=== PATIENT | male | born 1945 | race Caucasian/White ===

== ENCOUNTER 2016-10-06 09:06 | Emergency (ER) | payer MEDICARE ==
[2016-10-06 09:36] LABS: BASOPHIL# 0.1 X 10^3uL (0.0-0.1); BASOPHILS 1.6 % (0.0-2.0); EOSINOPHILS 4.6 % (0.0-6.0); EOSINOPHILS# 0.2 X 10^3uL (0.0-0.4); HEMATOCRIT 43.6 % (42.0-54.0); LYMPHOCYTES 28.2 % (20.0-40.0); LYMPHOCYTES# 1.3 X 10^3uL (0.8-3.8); MEAN CELL VOLUME 90.4 fL (80.0-100.0); MEAN CORPUS. HGB CONCENTRATION 34.3 g/dL (32.0-36.0); MEAN PLATELET VOLUME 7.1 fL (7.4-10.4); MONOCYTES 12.1 % (2.0-10.0); MONOCYTES# 0.6 X 10^3uL (0.2-1.0); NEUTROPHILS 53.5 % (54.0-75.0); NEUTROPHILS# 2.4 X 10^3uL (2.6-6.7); PLATELET COUNT 177 X 10^3uL (130-440); RED BLOOD COUNT 4.82 X 10^6uL (4.20-6.10); RED CELL DISTRIBUTION WIDTH 12.3 % (11.5-14.5); WHITE BLOOD COUNT 4.6 X 10^3uL (3.9-10.7)
[2016-10-06 09:47] LABS: BLOOD UREA NITROGEN 12 mg/dL (9-20); CALCIUM 8.9 mg/dL (8.4-10.2); CHLORIDE 110 mmol/L (98-107); CREATININE 0.8 mg/dL (0.7-1.3); EST GLOMERULAR FILTRATION RATE > 60 mL/min; GLUCOSE 88 mg/dL (70-100); SODIUM 144 mmol/L (137-145)
--- NOTE | 2016-10-06 09:49 | CT REPORT ---
HISTORY: Fall. COMPARISON: None. TECHNIQUE: Axial non-contrast images obtained from skull vertex through foramen magnum. Dose reduction technique was utilized. FINDINGS: There is no atrophy. There is no hemorrhage. There is no hydrocephalus. No mass lesion is identifi ed. Martinez white differentiation adequate, there is no infarction. No midline shift is identified. There is right-sided periorbital and post septal medial orbital emphysema. There is a minimally displ aced medial right orbital fracture which is seen best on axial image 4 of series 3, consider characte rization with CT of the facial bones. IMPRESSION: No acute intracranial abnormality. Medial right orbital fracture, consider characterization with CT of the facial bones. Final Electronic Signature: This report was electronically signed by Gianni Gtuhrie MD, FACR on 017 9:47 AM. skip /
--- NOTE | 2016-10-06 09:52 | CT REPORT ---
HISTORY: Fall. COMPARISON: None. TECHNIQUE: This examination was performed using automated exposure control, adjustment of mA or kV according to patient size, and/or use of iterative reconstruction technique. Axial thin section images obtained f rom skull base through head of the clavicles. Sagittal and coronal reformat images obtained. FINDINGS: There is no fracture. There is no prevertebral soft tissue swelling. Alignment is normal. There is no lytic or sclerotic lesion. Mineralization is normal. There is no gross soft tissue abnormality. Facet arthropathy and degenerative disc disease are noted at all cervical levels. IMPRESSION: Degenerative changes, no acute traumatic finding. Final Electronic Signature: This report was electronically signed by Gianni Guthrie MD, FACR on 017 9:50 AM. skip /
[2016-10-06 10:01] LABS: ALBUMIN 4.1 g/dL (3.5-5.0); ALKALINE PHOSPHATASE 60 U/L (38-126); ALT 44 U/L (21-72); AST 74 U/L (17-59); BILIRUBIN, DIRECT 0.1 mg/dL (0.0-0.4); BILIRUBIN, TOTAL 0.9 mg/dL (0.2-1.3); ETHYL ALCOHOL 91 mg/dL (<10); LIPASE 190 U/L (23-300); MAGNESIUM 1.9 mg/dL (1.6-2.3); TOTAL PROTEIN 7.3 g/dL (6.3-8.2)
[2016-10-06] MEDS ORDERED: MAGNESIUM SULFATE 1 GM/2 ML VIAL ONE (10:06)
[2016-10-06] MEDS ORDERED: MULTIVITAMINS 10 ML VIAL IV ONE (10:06)
[2016-10-06] MEDS ORDERED: THIAMINE HCL 200 MG/2 ML VIAL ONE (10:06)
--- NOTE | 2016-10-06 12:20 | MRI REPORT ---
HISTORY: History of fall, right eye pain and bruising. COMPARISON: CT head and CT cervical spine same date. TECHNIQUE: Multiplanar multi sequential imaging of the brain obtained with and without IV gadolinium. 15cc Magnevist contrast. FINDINGS: There are prominent bilateral subdural spaces noted, particularly near the skull vertex, right slight ly greater than left, suggesting subdural hygroma, there is no evidence of subdural hemorrhage. There is age-appropriate atrophy. There are scattered areas of increased T2 and FLAIR signal in the p ontine, periventricular, and subcortical white matter of the cerebral hemispheres bilaterally, consis tent with chronic small vessel ischemic change. There are prominent perivascular spaces noted in the lenticular nuclei bilaterally, within normal limits. There is pansinus mucosal thickening. There is trace fluid noted in the right ethmoid sinuses consistent with known history of medial orbit al fracture. There is some right-sided periorbital subcutaneous edema. There is no retrobulbar hemato ma or intraconal lesion. There is no evidence of acute infarction. There is no acute hemorrhage or hydrocephalus, there is no mass effect or midline shift, intracranial arterial flow voids are patent, there is no abnormal enhan cing brain parenchymal or extra-axial lesion identified. IMPRESSION: Prominent subdural spaces are noted bilaterally suggesting CSF hygroma, this suggests a history of re mote subdural hemorrhage, there is no acute hematoma identified. Age-appropriate atrophy and chronic small vessel ischemic change. Chronic sinus disease. There is trace fluid noted in the right medial ethmoid air cells consistent with known right-sided me dial orbital fracture seen on prior CT. There is no acute intracranial abnormality identified. Final Electronic Signature: This report was electronically signed by Gianni Guthrie MD, FACR on 017 12:18 PM. skip /
--- NOTE | 2016-10-06 13:23 | ER NURSING DOCUMENTATION ---
Nurse's Notes [facility] Name:Danie Templeton Age:70 yrs Sex:Male :1945 Arrival Date:10/06/2016 Time:09:06 Bed4 Private MD:Brandi Roy Diagnosis:Orbital Fracture-: Acute Right Medial Wall without Muscle Entrapement;Fall;Dehydration Presentation: 10/06 09:14 Acuity: MARILIA 2 tg 09:21 Notified ED Physician of patient's arrival and CC Dr. Gonzalez notified. tg 09:29 Presenting complaint: Patient states: Fell , but does not remember the fall. tg Noticed a black eye Thursday morning. reports episodes of slurred speech and confusion over the past few weeks that all resolve on their own. Pt has headache, neck ache, and sore shoulders. Transition of care: patient was not received from another setting of care. Time Last Known Well for patient was N/A. No acute neurological deficit is noted. Pre-hospital glucose is not applicable to this patient. 09:29 Method Of Arrival: Private Vehicle tg Triage Assessment: 09:36 The onset of the patients symptoms was more than six hours ago. General: Appears in no tg apparent distress, Behavior is cooperative, pleasant. Pain: Complains of pain in behind eyes, neck, shoulders. Neuro: Reports headache a syncopal episode. Neuro: Level of Consciousness is awake, alert, Oriented to person, place, time, event, Gait is steady, Speech is normal, Facial symmetry appears normal. Cardiovascular: Capillary refill < 3 seconds. Respiratory: Respiratory effort is even, unlabored. Derm: Skin is pink, warm & dry. Musculoskeletal:. Historical: - Allergies: ETHER; PENICILLINS; - Home Meds: 1. Nexium Oral 2. coenzyme Q10 oral 3. Aspirin Oral 4. Metoprolol Tartrate Oral 5. proair 6. Fish Oil oral - PMHx: epistaxis; atrial flutter; ASTHMA; superficial thrombophlebitis of leg; - PSHx: TONSILLECTOMY; umbilical hernia repair; - Tetanus: < 10 years. - Ebola Screening: : Patient negative for fever greater than or equal to 101.5 degrees Fahrenheit, and additional compatible Ebola Virus Disease symptoms. Patient denies exposure to infectious person. Patient denies travel to an Ebola-affected area in the 21 days before illness onset. No symptoms or risks identified at this time. . - Immunization history: Flu Vaccine < 1 year. - Social history: Smoking status: Patient states former smoker of tobacco. Screenin:39 Infectious Disease Risk Unable to Obtain. Abuse screen: Denies threats or abuse. Denies tg injuries from another. Nutritional screening: No deficits noted. Vital Signs: 09:09 BP 146 / 85; Pulse 61; Resp 14; Temp 98.4(O); Pulse Ox 92% on R/A; tg 10:03 BP 139 / 81 (auto/); tg 10:09 Pulse Ox 94% ; tg 10:30 BP 124 / 85 (auto/); tg 10:34 Pulse Ox 93% ; tg 12:31 BP 134 / 119 (auto/); tg 12:31 Pulse 72; Resp 14; Pulse Ox 91% on R/A; tg Pratibha Coma Score: 09:35 Eye Response: spontaneous(4). Verbal Response: oriented(5). Motor Response: obeys cd commands(6). Total: 15. ED Course: 09:07 Patient arrived in ED. akbar 09:08 Brandi Roy MD is Private Physician. akbar 09:14 Rayray Aparicio, RN is Primary Nurse. tg 09:14 Triage completed. tg 09:38 CAT SCAN; HEAD W/O CON [id number] In Process Unspecified. EDMS 09:39 Arm band placed on Bed in low position Call Light in Reach Gowned HOB Elevated Side tg rails up x1. Family accompanied patient. 09:39 Valuables Remains with patient. Pulse ox on. tg 09:40 Inserted peripheral IV: 20 gauge in left forearm. tg 09:43 CAT SCAN; CERVICAL [id number] In Process Unspecified. EDMS 09:48 Wilber Gonzalez MD is Attending Physician. cd 10:04 EKG done. (by ED staff). Reviewed by Rayray Aparicio RN. tg 11:20 Patient moved to MRI. ms 11:27 CAT SCAN; HEAD W/O CON [id number] In Process Unspecified. EDMS 11:30 BRAIN W/WO CONTRAST [id number] In Process Unspecified. EDMS 11:30 CAT SCAN; HEAD W/O CON [id number] Sent. tg 12:29 Patient moved back from MRI. ms 12:44 Brandi Roy MD is Referral Physician. cd 13:21 EKG attached lp Administered Medications: 10:08 Drug: Banana Bag - (NS 0.9% 1000 ml, folic acid 600 mcg, Thiamine 100 mg, Multivitamin tg 10 ml, Magnesium Sulfate 1 grams); Route: IV; Rate: calculated rate; Site: left forearm; 11:30 Follow up: IV Status: Completed infusion; IV Intake: 1000ml tg Intake: 11:30 IV: 1000ml; Total: 1000ml. tg Outcome: 12:46 Discharge ordered by . cd 13:18 Discharged to home ambulatory, with family. tg 13:18 Condition: unchanged 13:18 Discharge Assessment: Patient awake, alert and oriented x 3. No cognitive and/or functional deficits noted. Patient verbalized understanding of disposition instructions. 13:18 Instructed on discharge instructions, follow up and referral plans. medication usage, Prescriptions given X 1. 13:18 IV D/Jesse 13:22 Patient left the ED. tg 10/07 15:35 Discharge F/U Call: Spoke with: patient. Have you filled your prescriptions? yes. Did ke your discharge instructions answer all of your questions? yes Have you made a f/u appointment? yes What is the one thing you feel we could do to improve? Patient's answer: Feeling better overall. No questions Signatures: Dispatcher [employer] EDRayray Claros, RN JEFFREY Cherelle Cisneros RN RN Wilber Quesada MD MD cd Davies, Jackie, Nicolette Menendez jd ms Jeremiah, Rossi Salinas, RN JEFFREY ramos
--- NOTE | 2016-10-06 13:23 | ER PHYSICIAN DOCUMENTATION ---
Physician Documentation [facility] Name:Danie Templeton Age:70 yrs Sex:Male :1945 Arrival Date:10/06/2016 Time:09:06 Bed4 Private MD:Brandi Roy ED, Chris Disposition: 10/06 13:00 Chart complete. cd Disposition: 10/06/16 12:46 Discharged to Home/Self Care. Impression: Orbital Fracture - : Acute Right Medial Wall without Muscle Entrapement, Fall, Dehydration. - Condition is Good. - Discharge Instructions: DEHYDRATION (4y-Adult), FACIAL FRACTURE. - Prescriptions for Zithromax Z- Andrey 250 mg Oral Tablet - take 1 tablet by ORAL route as directed for 5 days Day 1 - take two (2) tablets one time. Day 2, 3, 4 , 5 take one (1) tablet once daily.; 6 tablet. - Medical Reconciliation form form. - Follow up: Brandi Roy MD; When: 7 - 10 days; Reason: Recheck today's complaints, Continuance of care. - Problem is new. - Symptoms have improved. - Notes: You have an Orbital Fracture. Do not blow your nose for 10 days, Take Zithromax 5 day Z-Pack to prevent Sinusitis... Ice pack as needed. Tylenol for pain. Follow up withENT Surgeon, Dr. Manuel Pandey, in [place] in 5 - 7 days. You must stop drinking alcohol today. Drink plenty of fluids...2 - 3 quarts of water every day. Please strongly consider joining AA and going every day. Follow up with Dr. Roy in 7 - 10 days. HPI: 09:15 This 70 yrs old Male presents to ER via Private Vehicle with complaints of cd Slurred Speech, Fall Injury. 09:15 The patient presents to the emergency department with a speech or higher order brain cd function problem, aphasia, that is moderate, on and off for the past two weeks. Patient's reports he would have difficulty word finding, concentrating, pronouncing words. He currently has no Neurologic symptoms. Patient fell and struck his right face resulting in a right periorbital ecchymosis this past , 4 days ago. He has amnesia for the event. He does not know if he he had LOC. In talking with the patient, he reports he usually has a martini, then 3 - 4 glasses of wine. I told him he is drinking too much and this probably contributed to his fall. I explained we would also have to work him up for a possible TIA.. Onset: The symptom(s)/episode began/occurred suddenly, 4 day(s) ago. Context: occurred at home. Associated signs and symptoms: Pertinent positives: headache, Pertinent negatives: altered mental status, dizziness, nausea, paresthesias, blurred vision, double vision, loss of vision. Severity of symptoms: At their worst the symptoms were moderate in the emergency department the symptoms are unchanged. Risk factors for stroke or transient ischemic attack: atrial fibrillation, hypertension, heavy alcohol use. The patient has not experienced similar symptoms in the past. Historical: - Allergies: ETHER; PENICILLINS; - Home Meds: 1. Nexium Oral 2. coenzyme Q10 oral 3. Aspirin Oral 4. Metoprolol Tartrate Oral 5. proair 6. Fish Oil oral - PMHx: epistaxis; atrial flutter; ASTHMA; superficial thrombophlebitis of leg; - PSHx: TONSILLECTOMY; umbilical hernia repair; - Tetanus: < 10 years. - Ebola Screening: : Patient negative for fever greater than or equal to 101.5 degrees Fahrenheit, and additional compatible Ebola Virus Disease symptoms. Patient denies exposure to infectious person. Patient denies travel to an Ebola-affected area in the 21 days before illness onset. No symptoms or risks identified at this time. . - Immunization history: Flu Vaccine < 1 year. - Social history: Smoking status: Patient states former smoker of tobacco. ROS: 09:35 ENT: Negative for injury, pain, epistaxis and discharge. cd 09:35 Cardiovascular: Negative for chest pain, palpitations, edema and pleuritic pain. cd Respiratory: Negative for shortness of breath, dyspnea on exertion, cough, sputum production, wheezing, hemoptysis and pleuritic chest pain. Abdomen/GI: Negative for abdominal pain, nausea, vomiting, diarrhea, constipation, distension, melena, hematochezia and hematemesis. Back: Negative for injury, pain or muscle spasms. : Negative for injury, bleeding, discharge, swelling, dysuria, frequency or urgency. MS/Extremity: Negative for injury, deformity, edema, calf tenderness, pain or coldness. 09:35 Skin: Negative for injury, rash, itching and discoloration. 09:35 Constitutional: Positive for poor PO intake, Negative for chills, fever. 09:35 Eyes: Positive for Right Periorbital ecchymosis, Negative for blurry vision, redness, visual disturbance, vision loss, or Diploplia. 09:35 Neck: Positive for pain at rest, bony tenderness. 09:35 Neuro: Positive for headache, loss of consciousness, speech changes, Negative for altered mental status, dizziness, gait disturbance, syncope, visual changes. 09:35 All other systems are negative. Exam: 09:35 ENT: Nares patent. No nasal discharge, no septal abnormalities noted. Tympanic cd membranes are normal and external auditory canals are clear. Oropharynx with no redness, swelling, or masses, exudates, or evidence of obstruction, uvula midline. Mucous membranes moist. Chest/axilla: Normal chest wall appearance and motion. Nontender with no deformity. No lesions are appreciated. Respiratory: Lungs have equal breath sounds bilaterally, clear to auscultation and percussion. No rales, rhonchi or wheezes noted. No increased work of breathing, no retractions or nasal flaring. Abdomen/GI: Soft, non-tender, with normal bowel sounds. No distension or tympany. No guarding or rebound. No evidence of tenderness throughout. Back: No spinal tenderness. No costovertebral tenderness. Full range of motion. Skin: Warm, dry with normal turgor. Normal color with no rashes, no lesions, and no evidence of cellulitis. MS/ Extremity: Pulses equal, no cyanosis. Neurovascular intact. Full, normal range of motion. Neuro: Awake and alert, GCS 15, oriented to person, place, time, and situation. Cranial nerves II-XII grossly intact. Motor strength 5/5 in all extremities. Sensory grossly intact. Cerebellar exam normal. Normal gait. 09:35 Psych: Awake, alert, with orientation to person, place and time. Behavior, mood, and affect are within normal limits. 09:35 Constitutional: The patient appears alert, awake, non-diaphoretic, non-toxic, well developed, well nourished, anxious. 09:35 Head/face: Noted is ecchymosis, that is moderate, of the right eye, Basilar skull fracture findings: raccoons' eyes, on the right. 09:35 Eyes: Periorbital structures: ecchymosis, that is moderate, on the right supraorbital ridge, right upper eyelid, medial canthus of right eye, lateral canthus of right eye and right lower eyelid, Pupils: equal, round, and reactive to light and accomodation, Extraocular movements: intact throughout, Conjunctiva: normal, no acute changes, Corneas: are normal, Anterior chamber: normal. 09:35 Neck: C-spine: vertebral tenderness, that is mild, diffusely, ROM/movement: no acute changes. 09:35 Cardiovascular: Rate: normal, Rhythm: regular, Pulses: no pulse deficits are appreciated, Heart sounds: normal. 09:35 Neuro: Motor: is normal, Sensation: is normal. cd Vital Signs: 09:09 BP 146 / 85; Pulse 61; Resp 14; Temp 98.4(O); Pulse Ox 92% on R/A; tg 10:03 BP 139 / 81 (auto/); tg 10:09 Pulse Ox 94% ; tg 10:30 BP 124 / 85 (auto/); tg 10:34 Pulse Ox 93% ; tg 12:31 BP 134 / 119 (auto/); tg 12:31 Pulse 72; Resp 14; Pulse Ox 91% on R/A; tg Victoria Coma Score: 09:35 Eye Response: spontaneous(4). Verbal Response: oriented(5). Motor Response: obeys cd commands(6). Total: 15. MDM: 09:15 Data interpreted: Pulse oximetry: on room air is 91 %. Interpretation: normal. cd 09:48 Patient medically screened. cd 10:00 ECG:. cd 11:30 Data reviewed: vital signs, nurses notes, old medical records, lab test result(s), EKG, cd radiologic studies, CT scan, MRI, and as a result, I will discharge patient, initiate a consult, with a plastic surgeon, from and Internal Medicine. 12:00 Neurological re-evaluation: normal neurological exam including cranial nerves, cd orientation, mentation, motor and sensory exam, cerebellar testing, GCS normal, and normal gait. Thrombolytics: No thrombolytic given not indicated. Patient did not receive fibrinolytic due to not indicated. 12:20 Counseling: I had a detailed discussion with the patient and/or guardian regarding: the cd historical points, exam findings, and any diagnostic results supporting the discharge/admit diagnosis, lab results, radiology results, the need for outpatient follow up, for a recheck, for a referral to a specialist, a plastic surgeon, as well as her PCP in 7 days. He will have an Echocardiogram and Bilateral Carotid US exam this week, to return to the emergency department if symptoms worsen or persist or if there are any questions or concerns that arise at home. Physician consultation: Manuel Pandey MD was called at 12:15, was contacted at 12:20, regarding consult, patient's condition, need to evaluate the patient as soon as possible, outpatient follow-up, and will see patient in office, in 2-3 days. 13:21 EKG attached lp 10/06 09:41 Order name: CBC AUTO DIF, MDIF/RMOR IF IND; Complete Time: 12:44 EDMS 10/06 09:51 Interpretation: Normal. 10/06 09:51 Order name: BASIC METABOLIC PANEL; Complete Time: 12:44 EDMS 10/06 09:54 Interpretation: Normal Except: CARBON DIOXIDE 20; Dehydration. 10/06 10:10 Order name: MAGNESIUM; Complete Time: 12:44 EDMS 10/06 10:17 Interpretation: Normal. 10/06 10:10 Order name: HEPATIC PANEL; Complete Time: 12:44 EDMS 10/06 10:17 Interpretation: Normal Except: AST 74. 10/06 10:10 Order name: LIPASE; Complete Time: 12:44 EDMS 10/06 10:17 Interpretation: Normal. 10/06 10:10 Order name: ETHYL ALCOHOL; Complete Time: 12:44 EDMS 10/06 10:18 Interpretation: Abnormal: ETHYL ALCOHOL 91. 10/06 10:45 Order name: PROTIME/INR; Complete Time: 12:44 EDMS 10/06 12:43 Interpretation: Normal. 10/06 09:38 Order name: CAT SCAN; HEAD W/O CON [id number] EDMS 10/06 09:53 Interpretation: Normal Except: No ICH...Acute Right sided Medial Orbital Fracture. No cd apparent muscle entrapement. 10/06 09:43 Order name: CAT SCAN; CERVICAL W/[id number]; Complete Time: 09:54 EDMS 10/06 09:53 Interpretation: Normal Except: DDD but no fractures. cd 10/06 11:30 Order name: BRAIN W/WO CONTRAST [id number]; Complete Time: 09:08 EDMS 10/08 09:08 Interpretation: Normal Except: Chronic changes and Right Medial Orbital Fracture cd without muscle entrapement. See Red report. 10/06 12:21 Order name: BRAIN W/WO CONTRAST [id number]; Complete Time: 12:44 EDMS 10/06 12:43 Interpretation: See Report below. Reviewed by me and discussed with patient and . cd 10/06 09:15 Order name: 12-lead EKG; Complete Time: 10:16 tg 10/06 09:15 Order name: Pulse Ox Continuous; Complete Time: 09:29 tg EC:00 Rate is 57 beats/min. Rhythm is regular. QRS [place] is Normal. [place] interval is normal. QRS cd interval is normal. QT interval is normal. No Q waves. T waves are Normal. No ST changes noted. Clinical impression: NSR, Poor Anterior R-wave progression. Interpreted by me. Dispensed Medications: 10:08 Drug: Banana Bag - (NS 0.9% 1000 ml, folic acid 600 mcg, Thiamine 100 mg, Multivitamin tg 10 ml, Magnesium Sulfate 1 grams); Route: IV; Rate: calculated rate; Site: left forearm; 11:30 Follow up: IV Status: Completed infusion; IV Intake: 1000ml tg Signatures: Rayray Aparicio RN RN tg Cherelle Cisneros RN RN Wilber Gonzalez MD MD cd
== END 2016-10-06 13:23 | disposition home or self-care (01) ==
LOC: ER 09:06
DX: S02.81XA Fracture of other specified skull and facial bones, right side, initial encounter for closed fracture (principal); S00.11XA Contusion of right eyelid and periocular area, initial encounter; R47.81 Slurred speech; R47.01 Aphasia; W19.XXXA Unspecified fall, initial encounter; Y93.01 Activity, walking, marching and hiking; E86.0 Dehydration; R94.31 Abnormal electrocardiogram [ECG] [EKG]; I10 Essential (primary) hypertension; I48.91 Unspecified atrial fibrillation; F10.10 Alcohol abuse, uncomplicated; Z86.72 Personal history of thrombophlebitis; Z79.82 Long term (current) use of aspirin; Z79.899 Other long term (current) drug therapy
CPT/HCPCS: 70450; 70553; 72125; 80048; 80076; 80320; 83690; 83735; 85025; 85610; 93005; 96365; 99284; J3475

== ENCOUNTER 2016-11-10 22:27 | Emergency (ER) | payer MEDICARE ==
[2016-11-10 22:33] LABS: BASOPHIL# 0.1 X 10^3uL (0.0-0.1); BASOPHILS 0.9 % (0.0-2.0); EOSINOPHILS 4.6 % (0.0-6.0); EOSINOPHILS# 0.3 X 10^3uL (0.0-0.4); HEMATOCRIT 44.4 % (42.0-54.0); HEMOGLOBIN 15.2 g/dL (14.0-18.0); LYMPHOCYTES 27.3 % (20.0-40.0); LYMPHOCYTES# 1.9 X 10^3uL (0.8-3.8); MEAN CELL VOLUME 87.7 fL (80.0-100.0); MEAN CORPUS. HGB CONCENTRATION 34.3 g/dL (32.0-36.0); MEAN CORPUSCULAR HEMOGLOBIN 30.1 pg (29.0-35.0); MEAN PLATELET VOLUME 8.4 fL (7.4-10.4); MONOCYTES 11.3 % (2.0-10.0); MONOCYTES# 0.8 X 10^3uL (0.2-1.0); NEUTROPHILS 55.9 % (54.0-75.0); NEUTROPHILS# 3.7 X 10^3uL (2.6-6.7); PLATELET COUNT 212 X 10^3uL (130-440); RED BLOOD COUNT 5.06 X 10^6uL (4.20-6.10); RED CELL DISTRIBUTION WIDTH 12.3 % (11.5-14.5); WHITE BLOOD COUNT 6.8 X 10^3uL (3.9-10.7)
[2016-11-10 22:44] LABS: BLOOD UREA NITROGEN 20 mg/dL (9-20); CALCIUM 9.8 mg/dL (8.4-10.2); CHLORIDE 105 mmol/L (98-107); EST GLOMERULAR FILTRATION RATE > 60 mL/min; GLUCOSE 88 mg/dL (70-100); POTASSIUM 4.4 mmol/L (3.5-5.1); SODIUM 144 mmol/L (137-145)
--- NOTE | 2016-11-10 22:57 | CT REPORT ---
HISTORY: Trauma COMPARISON: None. TECHNIQUE: Axial non-contrast images obtained from skull vertex through foramen magnum. Dose reduction technique was utilized. FINDINGS: BRAIN: Large acute right holohemispheric subdural hematoma measuring up to 2.6 cm with significant underlyin g mass effect. 1.5 cm right to left midline shift with early trapping the left lateral ventricle. No CT evidence of infarction at this time. BONES AND EXTRACRANIAL SOFT TISSUES: The orbits are unremarkable. The paranasal sinuses and mastoid air cells are clear. The calvarium is intact. IMPRESSION: Large holohemispheric right subdural hematoma with 1.5 cm right to left midline shift and early mateo ing of the left lateral ventricle. Critical results were communicated to Dr. RICHARDSON at 11/10/2016 10:50 PM. Final Electronic Signature: This report was electronically signed by Cornelio Kline MD on 11/10/2016 10:54 PM. harjit /
[2016-11-10] MEDS ORDERED: ONDANSETRON HCL 4 MG/2 ML VIAL ONE (23:12)
--- NOTE | 2016-11-10 23:17 | ER PHYSICIAN DOCUMENTATION ---
Physician Documentation [facility] Name:Danie Templeton Age:71 yrs Sex:Male :1945 Arrival Date:11/10/2016 Time:22:27 BedTrauma-A Private MD:Brandi Roy ED PhysicianDanie desai Disposition: 11/10/16 23:01 Transfer ordered to [facility]. Diagnosis is Subdural Hematoma. - Reason for transfer: Higher level of care. - Accepting physician is Dr. Espana. - Condition is Serious. - Problem is new. - Symptoms are unchanged. COBRA Form completed? Yes Transfer - Mode of Transportation Helicopter HPI: 11/10 22:37 This 71 yrs old Male presents to ER with complaints of S/S of Possible Stroke.jm 22:37 The patient complains of pain to the top of head. The patient describes the headache as jm pounding. Onset: The symptoms/episode began/occurred 2 week(s) ago, and became worse today. Associated signs and symptoms: Pertinent positives: weakness. Severity of symptoms: in the emergency department the pain is actually worse. Headache History: Denies prior headaches. the symptoms are aggravated by nothing. Risk factors for subarachnoid hemhorrage: no risk factors present. The patient has not experienced similar symptoms in the past. The patient has not recently seen a physician. According to , pt fell a month ago and has not been right. He's had URBANO's and falls, but he fell again today and was laying at the bottom of the steps unable to get up. EMS arrived and said his L side was weak. They brought him here. Pt is alert and states he just has a URBANO. . Historical: - Allergies: ETHER; PENICILLINS; - Home Meds: 1. Nexium Oral 2. coenzyme Q10 oral 3. Aspirin Oral 4. Metoprolol Tartrate Oral 5. ProAir HFA inhalation 6. Fish Oil oral - PMHx: epistaxis; atrial flutter; ASTHMA; superficial thrombophlebitis of leg; Orbital Fracture - : Acute Right Medial Wall without Muscle Entrapement (October 06, 2016); Fall (October 06, 2016); Dehydration (October 06, 2016); ALCOHOLISM; GERD; - PSHx: TONSILLECTOMY; umbilical hernia repair; - Tetanus: < 10 years unknown. - Ebola Screening: : Patient negative for fever greater than or equal to 101.5 degrees Fahrenheit, and additional compatible Ebola Virus Disease symptoms. - Immunization history: Pneumococcal vaccine is up to date, Flu Vaccine < 1 year. - Social history: Smoking status: Patient states former smoker of tobacco. ROS: 22:40 Constitutional: Negative for fatigue, fever. jm 22:40 Eyes: Negative for blurry vision. 22:40 Neck: Negative for injury or acute deformity. 22:40 Neuro: Positive for altered mental status, headache, weakness. 22:40 All other systems are negative. Exam: 22:42 Constitutional: The patient appears alert, awake. jm 22:42 Head/face: Exam is negative for obvious evidence of injury or deformity, contusion, Basilar skull fracture findings: Gomez signs, is not appreciated. 22:42 Eyes: Pupils: equal, round, and reactive to light and accomodation, Extraocular movements: intact throughout. 22:42 Neck: C-spine: appears grossly normal, Thyroid: appears normal. 22:42 Cardiovascular: Rate: normal, Rhythm: regular. 22:42 Respiratory: Respirations: normal, Breath sounds: are normal. 22:42 Abdomen/GI: Bowel sounds: normal, Palpation: abdomen is soft and non-tender. 22:42 Back: pain, is absent, CVA tenderness, is absent. 22:42 Musculoskeletal/extremity: Pulses: are normal with no appreciated deficits, Sensation intact. 22:42 Neuro: Mentation: is normal, Memory: is normal, Cranial nerves: normal except mild facial droop. , Motor: strength is 4/5 in the L arm and L leg, Sensation: is normal. 22:42 Psych: Behavior/mood is pleasant, cooperative, Affect is calm. Vital Signs: 22:35 BP 140 / 70; Pulse 48; Resp 16; Temp 97.9(O); Pulse Ox 92% ; Weight 77.11 kg; Height 5 rh ft. 11 in. (180.34 cm); Pain 0/10; 22:52 BP 134 / 74; Pulse 46; Resp 19; Pulse Ox 96% on 1 lpm NC; Pain 0/10; rh 23:01 BP 143 / 72; Pulse 49; Resp 15; Pulse Ox 94% on 1 lpm NC; Pain 0/10; rh 23:11 BP 124 / 66; Pulse 41; Resp 16; Pulse Ox 94% on 1 lpm NC; Pain 0/10; rh 23:18 BP 124 / 66; Pulse 46; Resp 18; Pulse Ox 94% ; Pain 4/10; bw2 22:35 Body Mass Index 23.71 (77.11 kg, 180.34 cm) NIH Stroke Scale Scores: 22:43 NIHSS Score: 3 bw2 Mcdonald Coma Score: 22:45 Eye Response: spontaneous(4). Verbal Response: oriented(5). Motor Response: obeys bw2 commands(6). Total: 15. Trauma Score (Adult): 22:45 Eye Response: spontaneous(1); Verbal Response: oriented(1); Motor Response: obeys bw2 commands(2); Systolic BP: > 89 mm Hg(4); Respiratory Rate: 10 to 29 per min(4); Pratibha Score: 15; Trauma Score: 12 23:18 Eye Response: spontaneous(1); Verbal Response: oriented(1); Motor Response: obeys bw2 commands(2); Systolic BP: > 89 mm Hg(4); Respiratory Rate: 10 to 29 per min(4); Mcdonald Score: 15; Trauma Score: 12 MDM: 22:31 Patient medically screened. 22:56 Differential diagnosis: intracerebral hemorrhage, subdural hematoma, traumatic jm injuries. Data reviewed: vital signs, nurses notes, old medical records, lab test result(s), EKG, radiologic studies, and as a result, I will *Transfer Patient. Test interpretation: by ED physician or midlevel provider: ECG. Counseling: I had a detailed discussion with the patient and/or guardian regarding: the historical points, exam findings, and any diagnostic results supporting the discharge/admit diagnosis, lab results, radiology results, the need to transfer to another facility. ECG:. Physician consultation: Dr. Espana was called at 22:40, was contacted at 22:45, accepted transfer. ED course: Pt w R sided 2.5cm subdural bleed w 1.5 cm midline shift. . ED course: GCS still 15 and pt still talking and acting normally (besides the L sided deficits noted on exam). . 23:[address] [facility] 11/10 22:36 Order name: CBC AUTO DIF, MDIF/RMOR IF IND; Complete Time: 23:02 [facility] 11/10 22:46 Order name: BASIC METABOLIC PANEL; Complete Time: 23:02 [facility] 11/10 22:47 Order name: PROTIME/INR; Complete Time: 23: [facility] 11/10 22:59 Order name: CAT SCAN; HEAD W/O CON 10802; Complete Time: 23: [facility] 11/10 22:28 Order name: 12-lead EKG; Complete Time: :44 11/10 22:28 Order name: Continuous Cardiac Monitoring; Complete Time: :44 11/10 22:28 Order name: I & O; Complete Time: :44 11/10 22:28 Order name: IV saline lock X2; Complete Time: :44 11/10 22:28 Order name: NIH Stroke Scale; Complete Time: : 11/10 22:28 Order name: NPO; Complete Time: 44 11/10 22:28 Order name: Pulse Ox Continuous; Complete Time: : 11/10 22:28 Order name: Stroke Team Activation Overhead; Complete Time: :44 EC:56 Rate is 49 beats/min. MO interval is normal. QRS interval is normal. QT interval is jm normal. No Q waves. T waves are Normal. No ST changes noted. Dispensed Medications: 22:28 CANCELLED (Other Intervention Used): niCARdipine IVPB 5 mg/hr IV at calculated rate rh continuous; May increase rate 2.5 mg/hr every 5 minutes to max 15 mg/hr 22:59 Drug: Zofran 4 mg; Route: IVP; Infused Over: 2 mins; Site: left antecubital; rh 23:16 Follow up: Response: Nausea is decreased Point of Care Testing: Blood Glucose: 22:35 Blood Glucose: 93 mg/dL; rh Ranges: Critical Glucose Levels:Adult <50 mg/dl or >400 mg/dl <40 mg/dl or >180 mg/dl NIH Stroke Scale - NIH Stroke Score Date: 11/10/2016 Time: 22:43 Total Score = 3 1a. Level of Consciousness (LOC) - 0(Alert) 1b. Level of Consciousness (LOC) (Year & Age) - 0(Both) 1c. LOC Commands (Open & Closes Eyes/Tube Winder Hand) - 0(Both) 2. Best Gaze (Lateral Gaze Paresis) - 0(Normal) 3. Visual Field Loss - 0(No visual loss) 4. Facial Palsy - 1(Minor Paralysis) 5a. Left Arm: Motor (10-second hold) - 1(Drift) 5b. Right Arm: Motor (10-second hold) - 0(No drift) 6a. Left Leg: Motor (5-second hold ? always test supine) - 1(Drift) 6b. Right Leg: Motor (5-second hold ? always test supine) - 0(No drift) 7. Limb Ataxia (finger/nose & heel/holland ? test with eyes open) - 0(Absent) 8. Sensory Loss (pinprick arms/legs/face) - 0(Normal) 9. Best Language: Aphasia (description/naming/reading) - 0(No aphasia) 10. Dysarthria (speech clarity ? read or repeat words) - 0(Normal) 11. Extinction and Inattention (visual/tactile/auditory/spatial/personal) - 0(No abnormality) Initials: bw2 Signatures: Danie Martins MD MD jm Hofsess, Rachel rh Wisely, Beth bw2
--- NOTE | 2016-11-10 23:17 | ER NURSING DOCUMENTATION ---
Nurse's Notes [facility] Name:Danie Templeton Age:71 yrs Sex:Male :1945 Arrival Date:11/10/2016 Time:22:27 BedTrauma-A Private MD:Brandi Roy Diagnosis:Subdural Hematoma Presentation: 11/10 22:28 Acuity: MARILIA 2 rh 22:37 Presenting complaint: states: Pt fell October 03 and was brought into the ER on october 06 for an evaluation, pt had a terrible URBANO. Pt was scanned and check out and discharged home. Pt has struggled with alcoholism most of his life and stopped drinking after this encounter. Pts legs gave out today and it was unwitnessed fall this evening, pt was found at the bottom of the staris., pt states he didn't hit his head. However pt C/O weakness in both legs, primarily the left side. Pt also had left sided tongue deviation and slurred speech along with URBANO. Transition of care: Home. 22:37 Method Of Arrival: EMS: 410 22:43 Time Last Known Well for patient was unknown last seen normal. pt fell october 03 and has bw2 had increased confusion and falls. pt has another fall this afternoon and states that pt had slurred speech and increased difficulty walking. No acute neurological deficit is noted. The patients blood glucose was checked before arriving to the hospital and was found to be normal. 23:23 Care prior to arrival: Labs. Mechanism of Injury: Fall from standing position. Trauma bw2 event details: Injury occurred in the [facility] Injury occurred at home. Triage Assessment: 22:57 General: Appears comfortable, Behavior is anxious. bw2 23:18 The onset of the patients symptoms was at an unknown time. bw2 Stroke Activation: Physician: ED Attending; Name: tamara; Notified At: ; Arrived At: Physician: broach trouble shooter; Name: VALORIE; Notified At: ; Arrived At: Physician: American History Professor; Name: Danie Young; Notified At: ; Arrived At: Physician: [not used]; Name: ; Notified At: ; Arrived At: Physician: [not used]; Name: ; Notified At: ; Arrived At: Historical: - Allergies: ETHER; PENICILLINS; - Home Meds: 1. Nexium Oral 2. coenzyme Q10 oral 3. Aspirin Oral 4. Metoprolol Tartrate Oral 5. ProAir HFA inhalation 6. Fish Oil oral - PMHx: epistaxis; atrial flutter; ASTHMA; superficial thrombophlebitis of leg; Orbital Fracture - : Acute Right Medial Wall without Muscle Entrapement (October 06, 2016); Fall (October 06, 2016); Dehydration (October 06, 2016); ALCOHOLISM; GERD; - PSHx: TONSILLECTOMY; umbilical hernia repair; - Tetanus: < 10 years unknown. - Ebola Screening: : Patient negative for fever greater than or equal to 101.5 degrees Fahrenheit, and additional compatible Ebola Virus Disease symptoms. - Immunization history: Pneumococcal vaccine is up to date, Flu Vaccine < 1 year. - Social history: Smoking status: Patient states former smoker of tobacco. Screenin:42 Infectious Disease Risk None. Abuse screen: Denies threats or abuse. Denies injuries bw2 from another. Nutritional screening: No deficits noted. 23:26 Tuberculosis screening: No symptoms or risk factors identified. bw2 Primary Survey: 22:45 Airway: patent. Breathing/Chest: Respiratory pattern: regular, Respiratory effort: bw2 spontaneous, unlabored, Breath sounds: clear, bilaterally. Circulation: Skin color: pink. Assessment: 22:40 Pain: Pain currently is 8 out of 10 on a pain scale. Neuro: in left Gait is shuffling, bw2 Reports headache parietal area. EENT: Cardiovascular: Rhythm is sinus bradycardia with PACs. GI: No deficits noted. 22:44 Reassessment: Last meal was at 1900 this evening. rh 22:45 General: Appears comfortable, Behavior is anxious, Reports. bw2 22:47 Reassessment: [facility] CALLED . rh 22:51 Reassessment: [facility] ACCEPTED THE FLIGHT AND ETA IS 2307. rh 23:09 Reassessment: [facility] ARRIVED INTO THE ED. rh Vital Signs: 22:35 BP 140 / 70; Pulse 48; Resp 16; Temp 97.9(O); Pulse Ox 92% ; Weight 77.11 kg; Height 5 rh ft. 11 in. (180.34 cm); Pain 0/10; 22:52 BP 134 / 74; Pulse 46; Resp 19; Pulse Ox 96% on 1 lpm NC; Pain 0/10; rh 23:01 BP 143 / 72; Pulse 49; Resp 15; Pulse Ox 94% on 1 lpm NC; Pain 0/10; rh 23:11 BP 124 / 66; Pulse 41; Resp 16; Pulse Ox 94% on 1 lpm NC; Pain 0/10; rh 23:18 BP 124 / 66; Pulse 46; Resp 18; Pulse Ox 94% ; Pain 4/10; bw2 22:35 Body Mass Index 23.71 (77.11 kg, 180.34 cm) rh Morris Coma Score: 22:45 Eye Response: spontaneous(4). Verbal Response: oriented(5). Motor Response: obeys bw2 commands(6). Total: 15. Trauma Score (Adult): 22:45 Eye Response: spontaneous(1); Verbal Response: oriented(1); Motor Response: obeys bw2 commands(2); Systolic BP: > 89 mm Hg(4); Respiratory Rate: 10 to 29 per min(4); Morris Score: 15; Trauma Score: 12 23:18 Eye Response: spontaneous(1); Verbal Response: oriented(1); Motor Response: obeys bw2 commands(2); Systolic BP: > 89 mm Hg(4); Respiratory Rate: 10 to 29 per min(4); Pratibha Score: 15; Trauma Score: 12 NIH Stroke Scale Scores: 22:43 NIHSS Score: 3 bw2 ED Course: 22:27 Patient arrived in ED. em2 22:27 Brandi Roy MD is Private Physician. em2 22:[address] jason 22:28 Triage completed. rh 22:30 Patient moved back from CT. jason 22:31 Danie Martins MD is Attending Physician. 22:35 Notified ED Physician of patient's arrival and chief complaint. Dr. Martins notified. 22:36 EKG done. (by ED staff). Reviewed by Danie Martins MD. Oxygen Oxygen administration via nasal cannula @ 1L/min. 22:40 Ginger Goodson is Primary Nurse. bw2 22:42 Valuables Remains with patient Patient has correct armband on for positive bw2 identification. Placed in gown. Bed in low position. Side rails up X2. air sampling and monitoring on. Pulse ox on. NIBP on. 22:42 Inserted peripheral IV: 18 gauge in right antecubital area and blood collected. bw2 22:42 Inserted peripheral IV: 18 gauge in left antecubital area. bw2 23:11 EKG attached bw2 Administered Medications: 22:28 CANCELLED (Other Intervention Used): niCARdipine IVPB 5 mg/hr IV at calculated rate rh continuous; May increase rate 2.5 mg/hr every 5 minutes to max 15 mg/hr 22:59 Drug: Zofran 4 mg; Route: IVP; Infused Over: 2 mins; Site: left antecubital; rh 23:16 Follow up: Response: Nausea is decreased rh Point of Care Testing: Blood Glucose: 22:35 Blood Glucose: 93 mg/dL; rh Ranges: Intake: 22:58 PO: 0ml; Total: 0ml. rh Output: 22:58 Urine: 0ml; Total: 0ml. rh Outcome: 22:56 [facility] Acceptance Time: November 10, 2016 at 22:55 Patient's face sheet was faxed to accepting facility. Face Sheet included patient's name, address, age, gender, contact information and insurance information. Patient will be transported by: [facility]. Nurse and Physician Charting and Notes were sent to Accepting Facility. All tests and/or procedures with results, if applicable, were sent to accepting facility. 22:56 Condition: stable 22:57 Instructed on bw2 23:01 ER care complete, transfer ordered by . joana 23:16 Patient left the ED. rh 23:18 Transferred: Report called to: ED RN 2 NIH Stroke Scale - NIH Stroke Score Date: 11/10/2016 Time: 22:43 Total Score = 3 1a. Level of Consciousness (LOC) - 0(Alert) 1b. Level of Consciousness (LOC) (Year & Age) - 0(Both) 1c. LOC Commands (Open & Closes Eyes/Hydro Operator) - 0(Both) 2. Best Gaze (Lateral Gaze Paresis) - 0(Normal) 3. Visual Field Loss - 0(No visual loss) 4. Facial Palsy - 1(Minor Paralysis) 5a. Left Arm: Motor (10-second hold) - 1(Drift) 5b. Right Arm: Motor (10-second hold) - 0(No drift) 6a. Left Leg: Motor (5-second hold ? always test supine) - 1(Drift) 6b. Right Leg: Motor (5-second hold ? always test supine) - 0(No drift) 7. Limb Ataxia (finger/nose & heel/holland ? test with eyes open) - 0(Absent) 8. Sensory Loss (pinprick arms/legs/face) - 0(Normal) 9. Best Language: Aphasia (description/naming/reading) - 0(No aphasia) 10. Dysarthria (speech clarity ? read or repeat words) - 0(Normal) 11. Extinction and Inattention (visual/tactile/auditory/spatial/personal) - 0(No abnormality) Initials: bw2 Signatures: Danie Martins MD MD jm Abbott, Kate Ford-reg, Chelsea-reg em2 [facility], Ginger Dawn bw2
== END 2016-11-10 23:17 | disposition short-term general hospital (02) ==
LOC: ER 22:27
DX: I62.00 Nontraumatic subdural hemorrhage, unspecified (principal); R53.1 Weakness; R51 Headache; R29.703 NIHSS score 3; R40.2412 Glasgow coma scale score 13-15, at arrival to emergency department; R29.6 Repeated falls; I48.92 Unspecified atrial flutter; Z79.82 Long term (current) use of aspirin; Z79.899 Other long term (current) drug therapy; Z74.3 Need for continuous supervision
CPT/HCPCS: 70450; 80048; 85025; 85610; 93005; 93010; 96374; 99202; 99285; A0420; A0425; A0427; J2405

== ENCOUNTER 2016-12-18 19:15 | Emergency (ER) | payer MEDICARE ==
[2016-12-18 19:51] LABS: HEMATOCRIT 42.1 % (42.0-54.0); HEMOGLOBIN 14.3 g/dL (14.0-18.0); RED BLOOD COUNT 4.83 X 10^6uL (4.20-6.10); WHITE BLOOD COUNT 6.6 X 10^3uL (3.9-10.7)
[2016-12-18 19:52] LABS: BASOPHILS 0.4 % (0.0-2.0); EOSINOPHILS 4.9 % (0.0-6.0); EOSINOPHILS# 0.3 X 10^3uL (0.0-0.4); LYMPHOCYTES 38.3 % (20.0-40.0); LYMPHOCYTES# 2.5 X 10^3uL (0.8-3.8); MEAN CORPUS. HGB CONCENTRATION 33.9 g/dL (32.0-36.0); MEAN CORPUSCULAR HEMOGLOBIN 29.5 pg (29.0-35.0); MEAN PLATELET VOLUME 7.9 fL (7.4-10.4); MONOCYTES 9.8 % (2.0-10.0); MONOCYTES# 0.7 X 10^3uL (0.2-1.0); NEUTROPHILS 46.6 % (54.0-75.0); NEUTROPHILS# 3.1 X 10^3uL (2.6-6.7); PLATELET COUNT 196 X 10^3uL (130-440); RED CELL DISTRIBUTION WIDTH 13.6 % (11.5-14.5)
[2016-12-18 19:57] LABS: BLOOD UREA NITROGEN 18 mg/dL (9-20); CALCIUM 9.9 mg/dL (8.4-10.2); CHLORIDE 105 mmol/L (98-107); EST GLOMERULAR FILTRATION RATE > 60 mL/min; GLUCOSE 120 mg/dL (70-100); INR 0.9; POTASSIUM 4.2 mmol/L (3.5-5.1); SODIUM 140 mmol/L (137-145)
--- NOTE | 2016-12-18 19:57 | CT REPORT ---
HISTORY: Evaluate for stroke. Recent intracranial hemorrhage. Please evaluate.. COMPARISON: CT head 11/10/2016. TECHNIQUE: Dose reduction technique was utilized. Axial non-contrasted images obtained from skull vertex throug h foramen magnum. Coronal reconstructions. FINDINGS: New calvarial tate holes within the right frontal region from known prior subdural evacuation. Right frontal parietal subdural mixed density collection is present with acute and nonacute blood products having greatest depth measurement of 2.5 cm and resulting in 1.4 cm right to left midline shift. This is probably secondary to rebleeding of previously evacuated right frontal subdural hematoma; recomme nd direct comparison with patient's previous postoperative head CT. No acute intracranial infarction. No intracranial mass. Critical results were communicated with TRACE RICHARDSON at 12/18/2016 7:52 PM. IMPRESSION: Interval rebleeding right frontal parietal subdural hematoma with acute and chronic blood products re sulting in 1.4 cm right to left midline shift. Final Electronic Signature: This report was electronically signed by Deuce Still MD on 12/18/2016 7: 54 PM. leticia /
[2016-12-18 20:09] LABS: TROPONIN I < 0.012 ng/mL (0.00-0.034)
--- NOTE | 2016-12-18 20:34 | ER NURSING DOCUMENTATION ---
Nurse's Notes [facility] Name:Danie Templeton Age:71 yrs Sex:Male :1945 Arrival Date:12/18/2016 Time:19:15 BedTrauma-A Private MD: Diagnosis:Subdural Hematoma-: Right Frontal-Parietal Region; Recurrent with 1.4 cm Midline Shift Presentation: 12/18 19:19 Acuity: MARILIA 2 rh 19:30 Presenting complaint: states: that pt has had cordination issues and slurred bw2 speech x 2 days. pt is alert and oriented. Transition of care: patient was not received from another setting of care. 19:30 Method Of Arrival: Wheelchair bw2 Triage Assessment: 19:33 General: Appears in no apparent distress, Behavior is anxious, appropriate for age, bw2 cooperative. Pain: Denies pain. Neuro: Reports loss of coordination . Respiratory: No deficits noted. Breath sounds are clear bilaterally. Historical: - Allergies: ETHER; PENICILLINS; - Home Meds: 1. Nexium Oral 2. coenzyme Q10 oral 3. Aspirin Oral 4. Metoprolol Tartrate Oral 5. ProAir HFA inhalation 6. Fish Oil oral - Tetanus: < 10 years. - Ebola Screening: : Patient negative for fever greater than or equal to 101.5 degrees Fahrenheit, and additional compatible Ebola Virus Disease symptoms. Patient denies exposure to infectious person. Patient denies travel to an Ebola-affected area in the 21 days before illness onset. No symptoms or risks identified at this time. . - Immunization history: Flu Vaccine < 1 year. - Social history: Smoking status: Patient states was never smoker of tobacco. Screenin:35 Infectious Disease Risk None. Abuse screen: Denies threats or abuse. Nutritional bw2 screening: No deficits noted. Assessment: 19:34 See Triage Assessment done by same RN. bw2 Vital Signs: 19:33 BP 133 / 77; Pulse 62; Resp 18; Temp 98(T); Pulse Ox 95% on R/A; Weight 90.72 kg; bw2 Height 6 ft. (182.88 cm); Pain 0/10; 20:19 BP 130 / 81; Pulse 58; Resp 18; Pulse Ox 92% on R/A; bw2 20:32 BP 128 / 80; Pulse 56; Resp 18; Pulse Ox 95% on R/A; Pain 0/10; bw2 19:33 Body Mass Index 27.12 (90.72 kg, 182.88 cm) bw2 [place] Coma Score: 20:10 Eye Response: spontaneous(4). Verbal Response: oriented(5). Motor Response: obeys cd commands(6). Total: 15. NIH Stroke Scale Scores: 19:34 NIHSS Score: 0 bw2 ED Course: 19:18 Patient arrived in ED. dp 19:19 Triage completed. rh 19:24 EKG done. (by ED staff). bw2 19:30 Ginger Goodson is Primary Nurse. bw2 19:35 Valuables Remains with patient Patient has correct armband on for positive bw2 identification. Placed in gown. Side rails up X2. lunchroom monitor on. Pulse ox on. NIBP on. 19:35 Inserted peripheral IV: 18 gauge in left antecubital area and blood collected. bw2 19:38 Wilber Gonzalez MD is Attending Physician. cd 19:[address] jason 19:[address] jason 20:05 Inserted peripheral IV: 18 gauge in left forearm. bw2 Administered Medications: No medications were administered Point of Care Testing: Blood Glucose: 19:31 Blood Glucose: 135 mg/dL; mv Ranges: Outcome: 20:23 ER care complete, transfer ordered by . cd 20:30 [facility] Acceptance Time: December 18, 2016 at 20:05 Patient's face sheet was faxed to accepting facility. Face Sheet included patient's name, address, age, gender, contact information and insurance information. Patient will be transported by: [facility] ground. Report called to: Sissy RN Nurse and Physician Charting and Notes were sent to Accepting Facility. All tests and/or procedures with results, if applicable, were sent to accepting facility. 20:32 Condition: stable bw2 20:32 Discharge Assessment: Patient awake, alert and oriented x 3. No cognitive and/or functional deficits noted. Patient verbalized understanding of disposition instructions. 20:32 Instructed on need for transfer 20:33 Patient left the ED. bw2 NIH Stroke Scale - NIH Stroke Score Date: 12/18/2016 Time: 19:34 Total Score = 0 1a. Level of Consciousness (LOC) - 0(Alert) 1b. Level of Consciousness (LOC) (Year & Age) - 0(Both) 1c. LOC Commands (Open & Closes Eyes/Hardware Press Operator) - 0(Both) 2. Best Gaze (Lateral Gaze Paresis) - 0(Normal) 3. Visual Field Loss - 0(No visual loss) 4. Facial Palsy - 0(Normal) 5a. Left Arm: Motor (10-second hold) - 0(No drift) 5b. Right Arm: Motor (10-second hold) - 0(No drift) 6a. Left Leg: Motor (5-second hold ? always test supine) - 0(No drift) 6b. Right Leg: Motor (5-second hold ? always test supine) - 0(No drift) 7. Limb Ataxia (finger/nose & heel/holland ? test with eyes open) - 0(Absent) 8. Sensory Loss (pinprick arms/legs/face) - 0(Normal) 9. Best Language: Aphasia (description/naming/reading) - 0(No aphasia) 10. Dysarthria (speech clarity ? read or repeat words) - 0(Normal) 11. Extinction and Inattention (visual/tactile/auditory/spatial/personal) - 0(No abnormality) Initials: bw2 Signatures: Wilber Gonzalez MD MD cd Abbott, Dunia Ferris margaux mv Wisely, Beth [facility] Thea Keller
--- NOTE | 2016-12-18 20:34 | ER PHYSICIAN DOCUMENTATION ---
Physician Documentation [facility] Name:Danie Templeton Age:71 yrs Sex:Male :1945 Arrival Date:12/18/2016 Time:19:15 BedTrauma-A Private MD: Wilber Cruz Disposition: 12/18/16 20:[address] [facility]. Diagnosis is Subdural Hematoma - : Right Frontal-Parietal Region; Recurrent with 1.4 cm Midline Shift. - Reason for transfer: Higher level of care. - Accepting physician is Dr. Biju Reed, [facility] Hospitalist. - Condition is Fair. - Problem is new. - Symptoms are unchanged. COBRA Form completed? Transfer - Mode of Transportation Ambulance HPI: 12/18 19:25 This 71 yrs old Male presents to ER via Wheelchair with complaints of S/S of cd Possible Stroke. 19:25 The patient's problem is reported as altered mental status, confused, over the past two cd days, slight mouth droop and intermittent mild speech changes. No weakness in extremities or sensation changes or headache. No trauma, DM or Hx hypoglycemia. Patient had similar symptoms November 102016 and had a right sided SUBDURAL HEMATOMA that was surgically drained by a Neurosurgeon at [facility]. He has done well since that time. No recent trauma. No anticoagulants. He presents to our ED completely Neurologically intact, NIHSS = 0, GCS= 15.. Onset: The symptom(s)/episode began/occurred acutely, yesterday. Duration: The episodes are intermittent, He presents now to the ED with no symptoms or neurologic findings on PE.. Context: the episode(s) was witnessed, by family, , occurred at home. Associated signs and symptoms: The patient has no apparent associated signs or symptoms. Patient's baseline: Neuro: alert and fully oriented, Motor: no deficits, Ambulation: walks without assistance, Speech: normal, The patient has a previous history of Subdural hematoma 11/10/2016, Evacuated by [facility] Neurosurgeon. 19:30 Severity of symptoms: At their worst the symptoms were very mild in the emergency cd department the symptoms have resolved. The patient has experienced a previous episode, last month, and the symptoms today are exactly the same, to his previous Subdural hematoma. Historical: - Allergies: ETHER; PENICILLINS; - Home Meds: 1. Nexium Oral 2. coenzyme Q10 oral 3. Aspirin Oral 4. Metoprolol Tartrate Oral 5. ProAir HFA inhalation 6. Fish Oil oral - Tetanus: < 10 years. - Ebola Screening: : Patient negative for fever greater than or equal to 101.5 degrees Fahrenheit, and additional compatible Ebola Virus Disease symptoms. Patient denies exposure to infectious person. Patient denies travel to an Ebola-affected area in the 21 days before illness onset. No symptoms or risks identified at this time. . - Immunization history: Flu Vaccine < 1 year. - Social history: Smoking status: Patient states was never smoker of tobacco. ROS: 20:08 ENT: Negative for injury, pain, epistaxis and discharge. cd Cardiovascular: Negative for chest pain, palpitations, edema and pleuritic pain. Respiratory: Negative for shortness of breath, dyspnea on exertion, cough, sputum production, wheezing, hemoptysis and pleuritic chest pain. Abdomen/GI: Negative for abdominal pain, nausea, vomiting, diarrhea, constipation, distension, melena, hematochezia and hematemesis. Back: Negative for injury, pain or muscle spasms. MS/Extremity: Negative for injury, deformity, edema, calf tenderness, pain or coldness. 20:08 Skin: Negative for injury, rash, itching and discoloration. cd 20:08 Constitutional: Negative for chills, fever, poor PO intake. 20:08 Neuro: Positive for altered mental status, Mild right mouth facial droop, mild speech changes and mild confusion, Negative for altered mental status, gait disturbance, headache, loss of consciousness, seizure activity, syncope, tingling, visual changes, weakness. 20:08 All other systems are negative. Exam: Constitutional: This is a well developed, well nourished patient who is awake, alert, and in no acute distress. Head/Face: Normocephalic, atraumatic. Eyes: Pupils equal round and reactive to light, extra-ocular motions intact. Lids and lashes normal. Conjunctiva and sclera are non-icteric and not injected. Cornea within normal limits. Periorbital areas with no swelling, redness, or edema. ENT: Nares patent. No nasal discharge, no septal abnormalities noted. Tympanic membranes are normal and external auditory canals are clear. Oropharynx with no redness, swelling, or masses, exudates, or evidence of obstruction, uvula midline. Mucous membranes moist. Neck: Trachea midline, no thyromegaly or masses palpated, and no cervical lymphadenopathy. Supple, full range of motion without nuchal rigidity, or vertebral point tenderness. No Meningismus. Cardiovascular: Regular rate and rhythm with a normal S1 and S2. No gallops, murmurs, or rubs. Normal PMI, no JVD. No pulse deficits. Respiratory: Lungs have equal breath sounds bilaterally, clear to auscultation and percussion. No rales, rhonchi or wheezes noted. No increased work of breathing, no retractions or nasal flaring. Abdomen/GI: Soft, non-tender, with normal bowel sounds. No distension or tympany. No guarding or rebound. No evidence of tenderness throughout. Back: No spinal tenderness. No costovertebral tenderness. Full range of motion. Skin: Warm, dry with normal turgor. Normal color with no rashes, no lesions, and no evidence of cellulitis. 20:10 MS/ Extremity: Pulses equal, no cyanosis. Neurovascular intact. Full, normal range cd of motion. 20:10 Neuro: Orientation: is normal, to person, place & time. Mentation: is normal, lucid, Memory: is normal, Cranial nerves: CN II- XII are normal as tested, Cerebellar function: is grossly normal, Motor: is normal, moves all fours, Sensation: is normal, Gait: not tested. Deep tendon reflexes are normal. Vital Signs: 19:33 BP 133 / 77; Pulse 62; Resp 18; Temp 98(T); Pulse Ox 95% on R/A; Weight 90.72 kg; bw2 Height 6 ft. (182.88 cm); Pain 0/10; 20:19 BP 130 / 81; Pulse 58; Resp 18; Pulse Ox 92% on R/A; bw2 20:32 BP 128 / 80; Pulse 56; Resp 18; Pulse Ox 95% on R/A; Pain 0/10; bw2 19:33 Body Mass Index 27.12 (90.72 kg, 182.88 cm) bw2 NIH Stroke Scale Scores: 19:34 NIHSS Score: 0 bw2 Pratibha Coma Score: 20:10 Eye Response: spontaneous(4). Verbal Response: oriented(5). Motor Response: obeys cd commands(6). Total: 15. MDM: 19:20 Data interpreted: equipment monitor phototypesetting: rate is 58 beats/min, rhythm is normal sinus rhythm, cd regular, with no ectopy, Interpretation: normal rate, Pulse oximetry: on room air is 95 %. Interpretation: normal. 19:35 Differential diagnosis: CVA, TIA, recurrent Subdural hematoma. cd 19:38 Patient medically screened. 19:55 Data reviewed: vital signs, nurses notes, old medical records, lab test result(s), EKG, cd radiologic studies, CT scan, and as a result, I will *Transfer Patient. Physician consultation: Cory Navas MD, Neurosurgeon was called at 20:02, was contacted at 20:05, regarding admission, to Neuro Floor / ICU, consult, patient's condition, and will see patient in inpatient room, would like consultation with by Hospitalist. Dr. Navas stated no meds needed, (Decadron or Mannitol). Other consultation: [facility] Hospitalist, Dr. Biju Reed consulted on Dr. Navas's request at 2019. Full report given. Will admit to Neuro ICU at [facility].. 20:14 Neurological re-evaluation: normal neurological exam including cranial nerves, cd orientation, mentation, motor and sensory exam, cerebellar testing, GCS normal, and normal gait. 20:21 Counseling: I had a detailed discussion with the patient and/or guardian regarding: the cd historical points, exam findings, and any diagnostic results supporting the discharge/admit diagnosis, lab results, radiology results, the need to transfer to another facility, for higher level of care, [facility] does not immediately have the required specialist. 12/18 19:53 Order name: CBC AUTO DIF, MDIF/RMOR IF IND; Complete Time: 20:13 EDMS 12/18 20:11 Interpretation: Normal. 12/18 20:02 Order name: PROTIME/INR; Complete Time: 20:13 EDMS 12/18 20:13 Interpretation: Normal. 12/18 20:03 Order name: BASIC METABOLIC PANEL; Complete Time: 20:13 EDMS 12/18 20:13 Interpretation: Normal. 12/18 20:09 Order name: TROPONIN I; Complete Time: 20:13 EDMS 12/18 20:13 Interpretation: Normal. 12/18 19:58 Order name: CAT SCAN; HEAD W/O CON [id number]; Complete Time: 20:13 EDMS 12/18 20:13 Interpretation: Abnormal: Acute right Frontal - Parietal Subdural hematoma. See cd Radiologist Report below. 2.5 cm max thickness, 1.4 cm Midline shift. 12/18 19:39 Order name: 12-lead EKG; Complete Time: 19:40 cd 12/18 19:39 Order name: Continuous Cardiac Monitoring; Complete Time: 19:40 cd 12/18 19:39 Order name: I & O; Complete Time: 19:40 cd 12/18 19:39 Order name: IV saline lock X2; Complete Time: 19:40 cd 12/18 19:39 Order name: NIH Stroke Scale; Complete Time: 19:40 cd 12/18 19:39 Order name: NPO; Complete Time: 19:44 cd 12/18 19:39 Order name: Pulse Ox Continuous; Complete Time: 19:44 cd 12/18 19:39 Order name: Stroke Team Activation Overhead; Complete Time: 19:44 cd 12/18 19:39 Order name: Accucheck; Complete Time: :44 cd 12/18 19:39 Order name: Elevate HOB 30 degrees; Complete Time: 19:44 cd Dispensed Medications: No medications were administered Point of Care Testing: Blood Glucose: 19:31 Blood Glucose: 135 mg/dL; mv Ranges: Critical Glucose Levels:Adult <50 mg/dl or >400 mg/dl <40 mg/dl or >180 mg/dl NIH Stroke Scale - NIH Stroke Score Date: 12/18/2016 Time: 19:34 Total Score = 0 1a. Level of Consciousness (LOC) - 0(Alert) 1b. Level of Consciousness (LOC) (Year & Age) - 0(Both) 1c. LOC Commands (Open & Closes Eyes/Customer Service Representative Teller) - 0(Both) 2. Best Gaze (Lateral Gaze Paresis) - 0(Normal) 3. Visual Field Loss - 0(No visual loss) 4. Facial Palsy - 0(Normal) 5a. Left Arm: Motor (10-second hold) - 0(No drift) 5b. Right Arm: Motor (10-second hold) - 0(No drift) 6a. Left Leg: Motor (5-second hold ? always test supine) - 0(No drift) 6b. Right Leg: Motor (5-second hold ? always test supine) - 0(No drift) 7. Limb Ataxia (finger/nose & heel/holland ? test with eyes open) - 0(Absent) 8. Sensory Loss (pinprick arms/legs/face) - 0(Normal) 9. Best Language: Aphasia (description/naming/reading) - 0(No aphasia) 10. Dysarthria (speech clarity ? read or repeat words) - 0(Normal) 11. Extinction and Inattention (visual/tactile/auditory/spatial/personal) - 0(No abnormality) Initials: bw2 Signatures: Wilber Gonzalez MD MD cd Wisely, Beth bw2
== END 2016-12-18 20:34 | disposition short-term general hospital (02) ==
LOC: ER 19:15
DX: I62.01 Nontraumatic acute subdural hemorrhage (principal); R41.82 Altered mental status, unspecified; R29.700 NIHSS score 0; Z79.82 Long term (current) use of aspirin; Z79.899 Other long term (current) drug therapy; Z74.3 Need for continuous supervision
CPT/HCPCS: 70450; 80048; 84484; 85025; 85610; 93005; 93010; 99284; 99285; A0425; A0427